=== PATIENT | male | born 1980 | race Caucasian/White ===

== ENCOUNTER 2022-10-14 18:43 | Emergency (ER) | payer BC ==
[~2022-10-14] VITALS: Ht 182.9 cm; Wt 88.5 kg
[2022-10-14 18:46] VITALS: BP 127/70
--- NOTE | 2022-10-14 18:54 | NUR ---
BIB [employer] FOR PREB[employer] C/O RIGHT THUMB LACERATION S/P BITE INJURY X TODAY. PMH: DENIES
[2022-10-14] MEDS ORDERED: KETOROLAC 60 MG/2 ML VIAL IM ONE (19:05)
[2022-10-14] MEDS ORDERED: AMOX-1230 PO (19:35)
[2022-10-14 19:43] VITALS: BP 127/70
--- NOTE | 2022-10-14 19:43 | NUR ---
PATIENT BIB [employer]. PATIENT EXAMINED BY DR. RODRIGUEZ. PATIENT MEDICALLY CLEARED AND RELEASED IN CUSTODY IN STABLE CONDITION. ORIGINAL PRE-BOOK FORM GIVEN TO OFFICER [facility].D/C WITH [facility]-CLAV.
== END 2022-10-14 19:43 ==
LOC: MED 18:43
DX: S61.031A Puncture wound without foreign body of right thumb without damage to nail, initial encounter (principal); Z79.899 Other long term (current) drug therapy; W50.3XXA Accidental bite by another person, initial encounter; Y93.89 Activity, other specified; Y92.89 Other specified places as the place of occurrence of the external cause; Y99.8 Other external cause status
CPT/HCPCS: 12002; 90471; 90715; 96372; 99284; J1885